=== PATIENT | male | born 1935 | race Caucasian/White ===

== ENCOUNTER → 2017-11-12 | Outpatient (CLI) | payer MEDICARE, OTHER ==
--- NOTE | 2017-11-12 12:55 | RADIOLOGY REPORT (SQ) ---
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 RADIONUCLIDE AND DOSE: 5.2 millicuries Tc-99m Sulfur Colloid. The route of agent administration: Intravenous ADDITIONAL DRUGS AND DOSES: None. TECHNIQUE: Images of the upper abdomen acquired in multiple projections following radionuclide admin istration. LIMITATIONS: None. FINDINGS: Liver: Normal size. Homogeneous activity. No focal lesions. Spleen: Normal size. Homogeneous activity. No focal lesions. Other: No colloid shift. IMPRESSION: Normal liver spleen scan. TECHNICAL DOCUMENTATION: JOB ID: [id number] [employer]- All Rights Reserved Reading location - IP/workstation name: [email or web address]
== END ==
LOC: RAD 10:59
PROVIDERS: ATTEND Internal Medicine Medical Oncology
DX: I71.4 Abdominal aortic aneurysm, without rupture (principal)
CPT/HCPCS: 78215; A9541

== ENCOUNTER 2017-12-10 08:56 | Day surgery (SDC) | payer MEDICARE ==
[2017-12-10 09:30] LABS: HEMATOCRIT 20.8 % (37.9-51.0); MEAN CORPUSCULAR HEMOGLOBIN 40.2 pg (27.0-33.4); MEAN CORPUSCULAR HGB CONC 35.9 g/dL (32.0-36.0); RED BLOOD COUNT 1.86 10^6/uL (4.35-5.55); RED CELL DISTRIBUTION WIDTH 17.9 % (11.5-14.0); WHITE BLOOD COUNT 2.1 10^3/uL (4.0-10.5)
[2017-12-10 09:32] LABS: INTERNATIONAL RATION (INR) 0.97; PROTHROMBIN TIME 13.4 SEC (11.4-15.4)
[2017-12-10 09:33] LABS: PARTIAL THROMBOPLASTIN TIME 30.7 SEC (23.5-35.8)
[2017-12-10 09:45] LABS: BLOOD UREA NITROGEN 19 mg/dL (7-20)
[2017-12-10 09:52] LABS: HEMOGLOBIN 7.5 g/dL (13.5-17.0)
[2017-12-10 09:53] LABS: MEAN CORPUSCULAR VOLUME 112 fl (80-97); PLATELET COUNT 14 10^3/uL (150-450)
[2017-12-10] MEDS ORDERED: MIDAZOLAM 2 MG/2 ML INJ ONE (10:50)
[2017-12-10] MEDS ORDERED: LIDOCAINE 1% INJ-PF (10 MG/ML) 30 ML SDV ONE (10:51)
[2017-12-10] MEDS ORDERED: FENTANYL CITRATE INJ/PF 100 MCG/2 ML AMPUL ONE (10:51)
--- NOTE | 2017-12-10 13:13 | RADIOLOGY REPORT (SQ) ---
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 TECHNIQUE: CT guided biopsy of the right posterior iliac crest performed with conscious sedation. CT Fluoroscopy Time: 1.[address] scanners at this facility use dose modulation, iterative reconstruction, and/or weight based d osing when appropriate to reduce radiation dose to as low as reasonably achievable (ALARA). [facility]: Dose Right [facility]: CareDose [facility]: Dose Right [facility]: Teradose 4D [facility]: Whim RADIATION DOSE: mGy. FINDINGS: After obtaining informed consent and explaining the risks and benefits of conscious sedati on,the patient agreed to the procedure. Prior to the procedure, a time out was performed to verify th e patient's identity and planned procedure. IV conscious sedation was administered and physician direction by the registered nurse using 0.5 mill igrams of Versed and 50 micrograms of fentanyl. Physiologic monitoring was provided before, during, a nd after sedation. The total sedation time was 30 minutes. Documentation face to face time, the performing proceduralist, spent monitoring the patient: [address] scanning was performed to localize the percutaneous site for the biopsy approach. After sterile skin prep and local lidocaine for skin and deep tissue anesthesia, a coaxial biopsy nee dle was used to obtain a bone marrow aspirate, and a bone marrow core of tissue. The biopsy tissue wa s received by [facility] lab to be sent out for evaluation. There were no immediate complications. Pathology is pending at the time of dictation. IMPRESSION: CT GUIDED ASPIRATE AND CORE BIOPSY OF THE RIGHT POSTERIOR ILIAC CREST BONE MARROW PERFOR MED WITHOUT IMMEDIATE COMPLICATION. PATHOLOGY PENDING. IV CONSCIOUS SEDATION WITHOUT COMPLICATION. COMMENT: Quality ID 145: Final reports for procedures using fluoroscopy that document radiation exp osure indices, or exposure time and number of fluorographic images (if radiation exposure indices are not available) Patient medication list reviewed: Yes- Quality ID# [id number]:Eligible professional attests to documenting i n the medical record they obtained, updated, or reviewed the patient's current medications.. TECHNICAL DOCUMENTATION: JOB ID: [id number] Quality ID# [id number]: Final reports with documentation of one or more dose reduction techniques (e.g., Aut omated exposure control, adjustment of the mA and/or kV according to patient size, use of iterative r econstruction technique) 2010 [employer]- All Rights Reserved Reading location - IP/workstation name: [email or web address]
--- NOTE | 2017-12-10 13:13 | RADIOLOGY REPORT (SQ) ---
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 TECHNIQUE: CT guided biopsy of the right posterior iliac crest performed with conscious sedation. CT Fluoroscopy Time: 1.[address] scanners at this facility use dose modulation, iterative reconstruction, and/or weight based d osing when appropriate to reduce radiation dose to as low as reasonably achievable (ALARA). [facility]: Dose Right [facility]: CareDose [facility]: Dose Right [facility]: Teradose 4D [facility]: [employer] RADIATION DOSE: mGy. FINDINGS: After obtaining informed consent and explaining the risks and benefits of conscious sedati on,the patient agreed to the procedure. Prior to the procedure, a time out was performed to verify th e patient's identity and planned procedure. IV conscious sedation was administered and physician direction by the registered nurse using 0.5 mill igrams of Versed and 50 micrograms of fentanyl. Physiologic monitoring was provided before, during, a nd after sedation. The total sedation time was 30 minutes. Documentation face to face time, the performing proceduralist, spent monitoring the patient: [address] scanning was performed to localize the percutaneous site for the biopsy approach. After sterile skin prep and local lidocaine for skin and deep tissue anesthesia, a coaxial biopsy nee dle was used to obtain a bone marrow aspirate, and a bone marrow core of tissue. The biopsy tissue wa s received by [facility] lab to be sent out for evaluation. There were no immediate complications. Pathology is pending at the time of dictation. IMPRESSION: CT GUIDED ASPIRATE AND CORE BIOPSY OF THE RIGHT POSTERIOR ILIAC CREST BONE MARROW PERFOR MED WITHOUT IMMEDIATE COMPLICATION. PATHOLOGY PENDING. IV CONSCIOUS SEDATION WITHOUT COMPLICATION. COMMENT: Quality ID 145: Final reports for procedures using fluoroscopy that document radiation exp osure indices, or exposure time and number of fluorographic images (if radiation exposure indices are not available) Patient medication list reviewed: Yes- Quality ID# [id number]:Eligible professional attests to documenting i n the medical record they obtained, updated, or reviewed the patient's current medications.. TECHNICAL DOCUMENTATION: JOB ID: [id number] Quality ID# [id number]: Final reports with documentation of one or more dose reduction techniques (e.g., Aut omated exposure control, adjustment of the mA and/or kV according to patient size, use of iterative r econstruction technique) 2010 [employer]- All Rights Reserved Reading location - IP/workstation name: [email or web address]
[2017-12-10 13:58] VITALS: BP 112/56
== END 2017-12-10 13:59 | disposition home or self-care (01) ==
LOC: RAD 08:56
PROVIDERS: ATTEND Internal Medicine Medical Oncology
DX: D69.6 Thrombocytopenia, unspecified (principal); D61.818 Other pancytopenia; Z85.46 Personal history of malignant neoplasm of prostate; Z88.8 Allergy status to other drugs, medicaments and biological substances
CPT/HCPCS: 36415; 84520; 82565; 85027; 85610; 85730; 38221; 77012; J2250; J3010; J3490